=== PATIENT | male | born 1940 | race Caucasian/White ===

== ENCOUNTER 2019-11-14 19:14 | Inpatient (IN) | payer MEDICARE, OTHER ==
--- NOTE | 2019-11-14 19:31 | ER Document Report ---
ED Medical Screen (RME) - General Chief Complaint: Bloody Stools Stated Complaint: PASSING BLOOD IN STOOL Notes: Patient is an 79-year-old white male with a past medical history of colon cancer status post partial colonic resection, diverticulitis and diabetes who presents to the emergency department the chief complaint of bright red blood per rectum. Reports this is been occurring for the past 2 days. Associated with increased bowel movements over the past 2 days. Denies any pain or other physical symptoms. He was concerned given his history of cancer so he came for evaluation. I have treated and performed a rapid initial assessment of this patient. A co mprehensive ED assessment and evaluation of the patient, analysis of test results and completion of medical decision making process will be conducted by additional ED providers. PHYSICAL EXAMINATION: GENERAL: Well-appearing, well-nourished and in no acute distress. A&Ox4. Answers questions appropriately. Physical Exam - Vital signs Vitals: Temp Pulse Resp BP Pulse Ox 97.8 F 94 16 118/69 96 11/14/19 19:21 11/14/19 19:21 11/14/19 19:21 11/14/19 19:21 11/14/19 19:21 Course - Vital Signs Vital signs: Temp Pulse Resp BP Pulse Ox 97.8 F 94 16 118/69 96 11/14/19 19:21 11/14/19 19:21 11/14/19 19:21 11/14/19 19:21 11/14/19 19:21
[2019-11-14 19:48] LABS: ABSOLUTE EOSINOPHILS # (AUTO) 0.1 10^3/uL (0.0-0.6); ABSOLUTE LYMPHOCYTES (AUTO) 1.4 10^3/uL (0.5-4.7); ABSOLUTE MONOCYTES (AUTO) 0.5 10^3/uL (0.1-1.4); BASOPHILS % (AUTO) 0.7 % (0-2); EOSINOPHILS % (AUTO) 1.9 % (0-6); HEMOGLOBIN 12.5 g/dL (13.5-17.0); LYMPHOCYTES % (AUTO) 23.5 % (13-45); MEAN CORPUSCULAR HGB CONC 34.8 g/dL (32.0-36.0); MEAN CORPUSCULAR VOLUME 92 fl (80-97); MONOCYTES % (AUTO) 8.6 % (3-13); PLATELET COUNT 198 10^3/uL (150-450); RED BLOOD COUNT 3.92 10^6/uL (4.35-5.55); RED CELL DISTRIBUTION WIDTH 13.1 % (11.5-14.0); SEGMENTED NEUTROPHILS % (AUTO) 65.3 % (42-78); TOTAL CELLS COUNTED % (AUTO) 100 %; WHITE BLOOD COUNT 6.1 10^3/uL (4.0-10.5)
[2019-11-14 20:08] LABS: ALKALINE PHOSPHATASE 46 U/L (38-126); ANION GAP 7 (5-19); ASPARTATE AMINO TRANSFERASE 27 U/L (17-59); BILIRUBIN,TOTAL 0.3 mg/dL (0.2-1.3); BLOOD UREA NITROGEN 32 mg/dL (7-20); CALCIUM 8.9 mg/dL (8.4-10.2); CARBON DIOXIDE 25 mmol/L (22-30); CHLORIDE 107 mmol/L (98-107); GLUCOSE 109 mg/dL (75-110); POTASSIUM 4.6 mmol/L (3.6-5.0); TOTAL PROTEIN 6.5 g/dL (6.3-8.2)
[2019-11-14 20:12] LABS: INTERNATIONAL RATION (INR) 1.12; PROTHROMBIN TIME 14.4 SEC (11.4-15.4)
[2019-11-14 20:13] LABS: PARTIAL THROMBOPLASTIN TIME 31.9 SEC (23.5-35.8)
[2019-11-14] MEDS ORDERED: NORMAL SALINE 1000 ML 1,000 ML IV ONE ×2 (20:34→23:00)
--- NOTE | 2019-11-14 21:57 | RADIOLOGY REPORT (SQ) ---
CLINICAL INDICATION: lower gi bleed. . TECHNIQUE: Contrast enhanced spiral axial CT imaging was obtained of the abdomen and pelvis with multiplanar reconstructions. This exam was performed according to our departmental dose-optimization program, which includes automated exposure control, adjustment of the mA and/or kV according to patient size and/or use of iterative reconstruction techniques. Additional delayed phase imaging COMPARISON: None. CORRELATION: None. FINDINGS: Abdomen: The lung bases are grossly clear. The heart is of normal size. No evidence of pleural or pericardial fluid. The liver is homogeneous. The gallbladder is nondistended without inflammatory change. The pancreas is unremarkable. The spleen is unremarkable. The adrenals are unremarkable. The kidneys appear grossly normal without evidence of urolithiasis or hydronephrosis. Renal cyst bilaterally, the largest arising from the right kidney at 10 cm. These are simple appearing cyst. There is no evidence of free air. No free fluid. No bulky adenopathy. Abdominal aorta is nonaneurysmal. Pelvis: The bowel is nonobstructed. The bowel is unopacified with oral contrast. Pelvic contents demonstrate radioactive seeds within the prostate. The appendix is normal. Diverticulosis of the colon. Postsurgical changes seen to the sigmoid colon. Please correlate with history. Diverticula disease of unknown chronicity is identified of the sigmoid colon. The complications of acute diverticulitis are not seen. No intraluminal contrast is identified on delayed phase imaging to suggest active extravasation Visualized bones which is a tiny sclerotic lesion right femoral neck series 3 image 86. Osteoarthritis. IMPRESSION: Diverticulosis of the colon. Remote postsurgical change. Diverticular disease of unknown chronicity is seen of the sigmoid colon. Both mild acute uncomplicated diverticulitis and chronic diverticular changes can have a similar appearance. Importantly, there is no evidence of the complications of acute diverticulitis. No evidence of extravasation of contrast is identified to suggest significant active gastrointestinal hemorrhage at this time..
--- NOTE | 2019-11-14 22:01 | ER Document Report ---
Entered by JENNA VICKERS SCRIBE 11/14/192014 Acting as scribe for:ANTONIO TURNER IV, MD ED General - General Chief Complaint: Bloody Stools Stated Complaint: PASSING BLOOD IN STOOL Time Seen by Provider: 11/14/19 20:12 Mode of Arrival: Ambulatory Information source: Patient Notes: This 79 year old male patient presents to the ED today with complaints of bloody stools that started around 1800 yesterday evening. Patient states that he noticed bright red blood in his stools x8 times and diarrhea since onset, but denies any associated pain. Patient reports that he felt a "tinge" of a stomach cramp that has since resolved and has a tendency to become constipated. Patient reports a history of prostate cancer, colon cancer with a partial bowel resection, diverticulitis, and diabetes. Patient notes that he takes Simivastatin, Metformin, and baby ASA. Patient also reports feeling unsteady on his feet. - Related Data Allergies/Adverse Reactions: Penicillins Allergy (Verified 11/14/19 19:33) Home Medications: simivastatin,metformin, baby ASA Past Medical History - General Information source: Patient - Social History Smoking Status: Never Smoker Cigarette use (# per day): No Chew tobacco use (# tins/day): No Smoking Education Provided: No Frequency of alcohol use: None Drug Abuse: None Lives with: Spouse/Significant other Family History: Reviewed & Not Pertinent Patient has suicidal ideation: No Patient has homicidal ideation: No Malignancy Medical History: Reports Hx Prostate Cancer, Reports Other - Hx Colon Cancer GI Medical History: Reports: Hx Diverticulitis Past Surgical History: Reports: Other - Partial colon resection Review of Systems - Review of Systems Constitutional: No symptoms reported EENT: No symptoms reported Cardiovascular: No symptoms reported Respiratory: No symptoms reported Gastrointestinal: See HPI, Diarrhea, Blood streaked bowels. denies: Abdominal pain Genitourinary: See HPI. denies: Pain Musculoskeletal: No symptoms reported Skin: No symptoms reported Hematologic/Lymphatic: No symptoms reported Neurological/Psychological: See HPI, Gait changes -: Yes All other systems reviewed and negative Physical Exam - Vital signs Vitals: Temp Pulse Resp BP Pulse Ox 97.8 F 94 16 118/69 96 11/14/19 19:21 11/14/19 19:21 11/14/19 19:21 11/14/19 19:21 11/14/19 19:21 Interpretation: Normal - General General appearance: Appears well, Alert - HEENT Head: Normocephalic, Atraumatic Eyes: Normal Pupils: PERRL - Respiratory Respiratory status: No respiratory distress Chest status: Nontender Breath sounds: Normal Chest palpation: Normal - Cardiovascular Rhythm: Regular Heart sounds: Normal auscultation Murmur: No Friction rub: No Gallop: None auscultated - Abdominal Inspection: Normal Distension: No distension Bowel sounds: Normal Tenderness: Nontender - Abdomen soft Organomegaly: No organomegaly - Rectal Stool: Heme positive, Bloody - grossly - Back Back: Normal, Nontender - Extremities General upper extremity: Normal inspection General lower extremity: Normal inspection - Neurological Neuro grossly intact: Yes - Psychological Associated symptoms: Normal affect, Normal mood - Skin Skin Temperature: Warm Skin Moisture: Dry Skin Color: Normal Course - Re-evaluation Re-evalutation: 11/14/19 23:01 Results of ED MSE discussed with patient. All questions were answered. Patient agreed to admission. - Vital Signs Vital signs: Temp Pulse Resp BP Pulse Ox 97.5 F 81 20 140/77 H 96 11/14/19 22:49 11/14/19 22:49 11/14/19 22:49 11/14/19 22:49 11/14/19 22:49 - Laboratory Result Diagrams: 11/14/19 19:40 11/14/19 19:40 Laboratory results interpreted by me: 11/14/19 11/14/19 19:40 19:40 RBC 3.92 L Hgb 12.5 L Hct 36.0 L BUN 32 H - Diagnostic Test Radiology reviewed: Reports reviewed - Consults dr. marisabel velazquez Time consulted: 22:55 - dr. velazquez agreed to admit the patient Reason for consultation: 11/14/19 23:02 diverticulosis, lower GI bleed Discharge - Discharge Clinical Impression: Lower GI bleed, Diverticulosis Condition: Good Disposition: ADMITTED INPATIENT Admitting Provider: Ady (Hospitalist) Unit Admitted: Telemetry I personally performed the services described in the documentation, reviewed and edited the documentation which was dictated to the scribe in my presence, and it accurately records my words and actions.
[2019-11-14] MEDS ORDERED: IPRATROPIUM/ALBUTEROL 0.5-2.5 MG/3 ML AMPUL NEB PRN (22:57)
[2019-11-14] MEDS ORDERED: ACETAMINOPHEN 325 MG TABLET PO PRN (22:57)
[2019-11-14] MEDS ORDERED: MAG HYDROX/AL HYDROX/SIMETH SUSP 30 ML UDCUP PO PRN (22:57)
[2019-11-15 00:58] LABS: ABSOLUTE EOSINOPHILS # (AUTO) 0.1 10^3/uL (0.0-0.6); ABSOLUTE LYMPHOCYTES (AUTO) 1.5 10^3/uL (0.5-4.7); ABSOLUTE MONOCYTES (AUTO) 0.5 10^3/uL (0.1-1.4); ABSOLUTE NEUT (AUTO) 3.4 10^3/uL (1.7-8.2); BASOPHILS % (AUTO) 0.7 % (0-2); EOSINOPHILS % (AUTO) 2.4 % (0-6); HEMATOCRIT 33.2 % (37.9-51.0); HEMOGLOBIN 11.5 g/dL (13.5-17.0); LYMPHOCYTES % (AUTO) 26.7 % (13-45); MEAN CORPUSCULAR HGB CONC 34.6 g/dL (32.0-36.0); MEAN CORPUSCULAR VOLUME 93 fl (80-97); MONOCYTES % (AUTO) 8.8 % (3-13); PLATELET COUNT 194 10^3/uL (150-450); RED BLOOD COUNT 3.59 10^6/uL (4.35-5.55); RED CELL DISTRIBUTION WIDTH 13.1 % (11.5-14.0); SEGMENTED NEUTROPHILS % (AUTO) 61.4 % (42-78); TOTAL CELLS COUNTED % (AUTO) 100 %; WHITE BLOOD COUNT 5.6 10^3/uL (4.0-10.5)
--- NOTE | 2019-11-15 06:25 | PDOC H&P ---
History of Present Illness Admission Date/PCP: 11/14/19 23:37 Patient complains of: Bloody stools History of Present Illness: SUJIT LERNER is a 79 year old male with a past medical history of dyslipidemia, diabetes, diverticulitis, prostate and colon cancer status post partial bowel resection. He presents with 4 hours of bright red blood per rectum x8 with subsequent diarrhea without pain. He admits preceding constipation but denies history of bleeding. In the emergency department he is found to have an unremarkable work-up without coagulopathy or anemia. He is referred to the hospitalist for admission. He denies recent change in medications. Past Medical History Cardiac Medical History: Reports: Hypertension Malignancy Medical History: Reports: Colorectal Cancer, Other - Hx Colon Cancer GI Medical History: Reports: Diverticulitis Psychiatric Medical History: Denies: Depression Past Surgical History Past Surgical History: Reports: Other - Partial colon resection Social History Information Source: Patient, COUNTS INCLUDE 234 BEDS AT [facility] Records Lives with: Spouse/Significant other Smoking Status: Smoker,Current Status Unk Electronic Cigarette use?: No Frequency of Alcohol Use: None Drugs: None Hx Prescription Drug Abuse: No - Advance Directive Resuscitation Status: Full Code Family History Family History: Hypertension Parental Family History Reviewed: Yes Children Family History Reviewed: Yes Sibling(s) Family History Reviewed.: Yes Medication/Allergy Allergies/Adverse Reactions: Penicillins Allergy (Verified 11/14/19 19:33) Review of Systems Constitutional: ABSENT: chills, fever(s), headache(s), weight gain, weight loss Eyes: ABSENT: visual disturbances Ears: ABSENT: hearing changes Cardiovascular: ABSENT: chest pain, dyspnea on exertion, edema, orthropnea, palpitations Respiratory: ABSENT: cough, hemoptysis Gastrointestinal: PRESENT: constipation. ABSENT: abdominal pain, diarrhea, hematemesis, hematochezia, nausea, vomiting Genitourinary: ABSENT: dysuria, hematuria Musculoskeletal: ABSENT: joint swelling Integumentary: ABSENT: rash, wounds Neurological: ABSENT: abnormal gait, abnormal speech, confusion, dizziness, focal weakness, syncope Psychiatric: ABSENT: anxiety, depression, homidical ideation, suicidal ideation Endocrine: ABSENT: cold intolerance, heat intolerance, polydipsia, polyuria Hematologic/Lymphatic: ABSENT: easy bleeding, easy bruising Physical Exam Vital Signs: Temp Pulse Resp BP Pulse Ox 98.1 F 83 18 136/74 H 96 11/15/19 01:13 11/15/19 02:00 11/15/19 01:13 11/15/19 01:13 11/15/19 01:13 Intake & Output 11/13/19 11/14/19 11/15/19 11:59 11:59 11:59 Intake Total 1000 Balance 1000 Weight 98 kg General appearance: PRESENT: no acute distress, well-developed, well-nourished Head exam: PRESENT: atraumatic, normocephalic Eye exam: PRESENT: conjunctiva pink, EOMI, PERRLA. ABSENT: scleral icterus Ear exam: PRESENT: normal external ear exam Mouth exam: PRESENT: moist, tongue midline Neck exam: ABSENT: carotid bruit, JVD, lymphadenopathy, thyromegaly Respiratory exam: PRESENT: clear to auscultation eulogio. ABSENT: rales, rhonchi, wheezes Cardiovascular exam: PRESENT: RRR. ABSENT: diastolic murmur, rubs, systolic murmur Pulses: PRESENT: normal dorsalis pedis pul Vascular exam: PRESENT: normal capillary refill GI/Abdominal exam: PRESENT: normal bowel sounds, soft. ABSENT: distended, guarding, mass, organolmegaly, rebound, tenderness Rectal exam: PRESENT: deferred Extremities exam: PRESENT: full ROM. ABSENT: calf tenderness, clubbing, pedal edema Neurological exam: PRESENT: alert, awake, oriented to person, oriented to place, oriented to time, oriented to situation, CN II-XII grossly intact. ABSENT: motor sensory deficit Psychiatric exam: PRESENT: appropriate affect, normal mood. ABSENT: homicidal ideation, suicidal ideation Skin exam: PRESENT: dry, intact, warm. ABSENT: cyanosis, rash Results Laboratory Results: 11/15/19 00:51 11/14/19 19:40 11/14/19 11/14/19 11/14/19 19:40 19:40 20:20 WBC 6.1 RBC 3.92 L Hgb 12.5 L Hct 36.0 L MCV 92 MCH 32.0 MCHC 34.8 RDW 13.1 Plt Count 198 Seg Neutrophils % 65.3 Sodium 138.7 Potassium 4.6 Chloride 107 Carbon Dioxide 25 Anion Gap 7 BUN 32 H Creatinine 1.05 Est GFR ( Amer) > 60 Glucose 109 Calcium 8.9 Total Bilirubin 0.3 AST 27 Alkaline Phosphatase 46 Total Protein 6.5 Albumin 4.0 Lipase 148.7 Blood Type A NEGATIVE Antibody Screen NEGATIVE 11/15/19 00:51 WBC 5.6 RBC 3.59 L Hgb 11.5 L Hct 33.2 L MCV 93 MCH 32.0 MCHC 34.6 RDW 13.1 Plt Count 194 Seg Neutrophils % 61.4 Sodium Potassium Chloride Carbon Dioxide Anion Gap BUN Creatinine Est GFR ( Amer) Glucose Calcium Total Bilirubin AST Alkaline Phosphatase Total Protein Albumin Lipase Blood Type Antibody Screen Impressions: Abdomen/Pelvis CT 11/14/19 20:36 IMPRESSION: Diverticulosis of the colon. Remote postsurgical change. Diverticular disease of unknown chronicity is seen of the sigmoid colon. Both mild acute uncomplicated diverticulitis and chronic diverticular changes can have a similar appearance. Importantly, there is no evidence of the complications of acute diverticulitis. No evidence of extravasation of contrast is identified to suggest significant active gastrointestinal hemorrhage at this time.. Assessment and Plan - Diagnosis (1) Lower GI bleed Is this a current diagnosis for this admission?: Yes Plan: Likely painless diverticular bleed, telemetry monitoring follow-up serial CBC and surgical consult (2) Diverticulosis Is this a current diagnosis for this admission?: Yes Plan: Please see #1 - Time Time Spent with patient: 25-34 minutes
[2019-11-15 06:39] LABS: ABSOLUTE EOSINOPHILS # (AUTO) 0.1 10^3/uL (0.0-0.6); ABSOLUTE LYMPHOCYTES (AUTO) 1.1 10^3/uL (0.5-4.7); ABSOLUTE MONOCYTES (AUTO) 0.5 10^3/uL (0.1-1.4); ABSOLUTE NEUT (AUTO) 3.1 10^3/uL (1.7-8.2); BASOPHILS % (AUTO) 0.6 % (0-2); EOSINOPHILS % (AUTO) 1.9 % (0-6); HEMATOCRIT 26.9 % (37.9-51.0); HEMOGLOBIN 9.5 g/dL (13.5-17.0); MEAN CORPUSCULAR HEMOGLOBIN 32.3 pg (27.0-33.4); MEAN CORPUSCULAR HGB CONC 35.2 g/dL (32.0-36.0); MEAN CORPUSCULAR VOLUME 92 fl (80-97); MONOCYTES % (AUTO) 10.5 % (3-13); PLATELET COUNT 152 10^3/uL (150-450); RED BLOOD COUNT 2.93 10^6/uL (4.35-5.55); RED CELL DISTRIBUTION WIDTH 13.3 % (11.5-14.0); TOTAL CELLS COUNTED % (AUTO) 100 %; WHITE BLOOD COUNT 4.9 10^3/uL (4.0-10.5)
[2019-11-15] MEDS ORDERED: FLUOCINOLONE ACETONIDE OIL AU PRN (12:39)
--- NOTE | 2019-11-15 12:44 | PDOC PROGRESS REPORT ---
Subjective Progress Note for:: 11/15/19 Subjective:: Patient complains of: Bloody stools History of Present Illness: SUJIT LERNER is a 79 year old male with a past medical history of dyslipidemia, diabetes, diverticulitis, prostate and colon cancer status post partial bowel resection. He presents with 4 hours of bright red blood per rectum x8 with subsequent diarrhea without pain. He admits preceding constipation but denies history of bleeding. In the emergency department he is found to have an unremarkable work-up without coagulopathy or anemia. He is ref erred to the hospitalist for admission. He denies recent change in medications. Interval history: 11/07/2019: Patient seen and examined. Patient tells me he is feeling better. Had a small bowel movement last night and there was no blood in it. He is currently n.p.o. and waiting to see his surgeon. P Reason For Visit: LOWER GI BLEED,DIVERTICULOSIS Physical Exam Vital Signs: Temp Pulse Resp BP Pulse Ox 98.5 F 81 18 105/62 95 11/15/19 10:51 11/15/19 10:51 11/15/19 10:51 11/15/19 10:51 11/15/19 10:51 Intake & Output 11/14/19 11/15/19 11/16/19 06:59 06:59 06:59 Intake Total 1000 Balance 1000 Weight 216 lb 0.848 oz Exam: hysical Exam General appearance: no acute distress, well-developed, well-nourished Head exam: atraumatic, normocephalic Eye exam: conjunctiva pink, EOMI, PERRLA. No scleral icterus Ear exam: normal external ear exam Mouth exam: moist, tongue midline Neck exam: No carotid bruit, JVD, lymphadenopathy, thyromegaly Respiratory exam: clear to auscultation eulogio. No rales, rhonchi, wheezes Cardiovascular exam: RRR. No diastolic murmur, rubs, systolic murmur Pulses: normal dorsalis pedis pul Vascular exam: normal capillary refill GI/Abdominal exam: normal bowel sounds, soft. No distended, guarding, mass, organolmegaly, rebound, tenderness Rectal exam: deferred Extremities exam: full ROM. No calf tenderness, clubbing, pedal edema Neurological exam: alert, awake, oriented to person, oriented to place, orient ed to time, oriented to situation, CN II-XII grossly intact. No motor sensory deficit Psychiatric exam: appropriate affect, normal mood. No homicidal ideation, suicidal ideation Skin exam: dry, intact, warm. No cyanosis, rash Results Laboratory Results: 11/15/19 06:35 11/14/19 19:40 11/14/19 11/14/19 11/14/19 19:40 19:40 20:20 WBC 6.1 RBC 3.92 L Hgb 12.5 L Hct 36.0 L MCV 92 MCH 32.0 MCHC 34.8 RDW 13.1 Plt Count 198 Seg Neutrophils % 65.3 Sodium 138.7 Potassium 4.6 Chloride 107 Carbon Dioxide 25 Anion Gap 7 BUN 32 H Creatinine 1.05 Est GFR ( Amer) > 60 Glucose 109 Calcium 8.9 Total Bilirubin 0.3 AST 27 Alkaline Phosphatase 46 Total Protein 6.5 Albumin 4.0 Lipase 148.7 Blood Type A NEGATIVE Antibody Screen NEGATIVE 11/15/19 11/15/19 00:51 06:35 WBC 5.6 4.9 RBC 3.59 L 2.93 L Hgb 11.5 L 9.5 L Hct 33.2 L 26.9 L MCV 93 92 MCH 32.0 32.3 MCHC 34.6 35.2 RDW 13.1 13.3 Plt Count 194 152 Seg Neutrophils % 61.4 64.0 Sodium Potassium Chloride Carbon Dioxide Anion Gap BUN Creatinine Est GFR ( Amer) Glucose Calcium Total Bilirubin AST Alkaline Phosphatase Total Protein Albumin Lipase Blood Type Antibody Screen Impressions: Abdomen/Pelvis CT 11/14/19 20:36 IMPRESSION: Diverticulosis of the colon. Remote postsurgical change. Diverticular disease of unknown chronicity is seen of the sigmoid colon. Both mild acute uncomplicated diverticulitis and chronic diverticular changes can have a similar appearance. Importantly, there is no evidence of the complications of acute diverticulitis. No evidence of extravasation of contrast is identified to suggest significant active gastrointestinal hemorrhage at this time.. Assessment and Plan - Plan Summary Summary: Assessment and Plan (1) Lower GI bleed Is this a current diagnosis for this admission?: Yes Plan: Likely painless diverticular bleed, telemetry monitoring follow-up serial CBC and surgical consult (2) Diverticulosis Is this a current diagnosis for this admission?: Yes Plan: Please see #1
[2019-11-15 14:10] LABS: ABSOLUTE EOSINOPHILS # (AUTO) 0.1 10^3/uL (0.0-0.6); ABSOLUTE MONOCYTES (AUTO) 0.4 10^3/uL (0.1-1.4); ABSOLUTE NEUT (AUTO) 2.7 10^3/uL (1.7-8.2); BASOPHILS % (AUTO) 0.6 % (0-2); EOSINOPHILS % (AUTO) 2.9 % (0-6); HEMATOCRIT 27.6 % (37.9-51.0); HEMOGLOBIN 9.6 g/dL (13.5-17.0); LYMPHOCYTES % (AUTO) 24.3 % (13-45); MEAN CORPUSCULAR HEMOGLOBIN 31.6 pg (27.0-33.4); MEAN CORPUSCULAR HGB CONC 34.9 g/dL (32.0-36.0); MEAN CORPUSCULAR VOLUME 91 fl (80-97); MONOCYTES % (AUTO) 9.3 % (3-13); PLATELET COUNT 160 10^3/uL (150-450); RED BLOOD COUNT 3.04 10^6/uL (4.35-5.55); RED CELL DISTRIBUTION WIDTH 13.3 % (11.5-14.0); SEGMENTED NEUTROPHILS % (AUTO) 62.9 % (42-78); TOTAL CELLS COUNTED % (AUTO) 100 %; WHITE BLOOD COUNT 4.2 10^3/uL (4.0-10.5)
[2019-11-15 14:31] LABS: ANION GAP 5 (5-19); BLOOD UREA NITROGEN 23 mg/dL (7-20); CALCIUM 8.2 mg/dL (8.4-10.2); CARBON DIOXIDE 25 mmol/L (22-30); CHLORIDE 109 mmol/L (98-107); GLUCOSE 107 mg/dL (75-110); POTASSIUM 4.4 mmol/L (3.6-5.0)
[2019-11-15] MEDS ORDERED: PEG 3350/NA SULF,BICARB,CL/KCL 4000 ML PO ONE (16:45)
[2019-11-15] MEDS ORDERED: (PENDING PHARMACY ID) (Vit C/E/Zn/Coppr/Lutein/Zeaxan [Preservision Areds 2 Softgel] 1 EAC PO SCH (18:00)
[2019-11-15] MEDS ORDERED: PEG 3350/NA SULF,BICARB,CL/KCL 4000 ML ONE (18:11)
[2019-11-15] MEDS: VITAMIN B COMPLEX TABLET PO SCH (18:23)
[2019-11-15] MEDS: ASCORBIC ACID 500 MG TABLET PO SCH (18:23)
[2019-11-15] MEDS: VITAMIN A 10,000 UNIT CAPSULE PO SCH (18:28)
--- NOTE | 2019-11-15 18:40 | PDOC CONSULTATION ---
Consultation Consult Date: 11/15/19 Provider Consulted: ADRIANA SUAREZ Consult reason:: GI bleed History of Present Illness Admission Date/PCP: 11/14/19 23:37 Patient complains of: GI bleeding History of Present Illness: SUJIT LERNER is a 79 year old male Presents emergency department via ground rescue after having 8 episodes of blood in his bowel movements yesterday. Patient remained hemodynamically stable, was seen emergency department where he is found to have a hemoglobin of 12.5. Patient was admitted to the internal medicine service, with plans for surgical consultation, however no phone call was received by the surgeon on-call. This afternoon nursing services called Dr. Suarez for the consult. Patient reports he had one episode of GI bleeding remotely, but no hospitalizations for such symptoms, or blood transfusion requirement. Patient is 10 years status post limited colectomy for follow-up with base of features. Patient received no adjuvant therapy for this. He has no complaints at this time, no further bleeding. Patient has had multiple colonoscopies since his colectomy with benign results. He is prepared for repeat colonoscopy. Past Medical History Cardiac Medical History: Reports: Hypertension Malignancy Medical History: Reports: Colorectal Cancer, Other - Hx Colon Cancer GI Medical History: Reports: Diverticulitis Psychiatric Medical History: Denies: Depression Past Surgical History Past Surgical History: Partial colectomy, 14 years ago [facility]; surveillance colonoscopies with unremarkable findings since; history of radium implants for prostate cancer 25 years ago Past Surgical History: Reports: Other - Partial colon resection Social History Lives with: Spouse/Significant other Smoking Status: Smoker,Current Status Unk Electronic Cigarette use?: No Frequency of Alcohol Use: None Drugs: None Hx Prescription Drug Abuse: No - Advance Directive Resuscitation Status: Full Code Family History Family History: None, Hypertension Parental Family History Reviewed: No Children Family History Reviewed: No Sibling(s) Family History Reviewed.: No Medication/Allergy Home Medications: Ascorbic Acid [Vitamin C 500 mg Tablet] 500 mg PO QPM 11/15/19 Aspirin [Ecotrin 81 mg EC Tablet] 81 mg PO DAILY 11/15/19 Fluocinolone Acetonide Oil [Dermotic] 1 drop AU BIDP PRN 11/15/19 Levothyroxine Sodium 50 mcg PO Q6AM 11/15/19 Meloxicam [Mobic 15 mg Tablet] 15 mg PO DAILYP PRN 11/15/19 Metformin HCl [Glucophage 500 mg Tablet] 500 mg PO BIDACBS 11/15/19 Simvastatin 40 mg PO QHS 11/15/19 Vit C/E/Zn/Coppr/Lutein/Zeaxan [Preservision Areds 2 Softgel] 1 each PO BID 0 11/15/19 Vitamin A [Vitamin A 10,000 Unit Capsule] 10,000 unit PO QPM 11/15/19 Vitamin B Complex [Vitamin B Complex Tablet] 1 tab PO QPM 11/15/19 Allergies/Adverse Reactions: Penicillins Allergy (Verified 11/14/19 19:33) Review of Systems Constitutional: PRESENT: as per HPI Eyes: ABSENT: visual disturbances Ears: ABSENT: hearing changes Cardiovascular: ABSENT: chest pain, dyspnea on exertion, edema, orthropnea, palpitations Respiratory: ABSENT: cough, hemoptysis Gastrointestinal: PRESENT: as per HPI Genitourinary: PRESENT: as per HPI, other - Occasional frequency. ABSENT: dysuria, hematuria Integumentary: ABSENT: rash, wounds Psychiatric: ABSENT: anxiety, depression, homidical ideation, suicidal ideation Endocrine: ABSENT: cold intolerance, heat intolerance, polydipsia, polyuria Hematologic/Lymphatic: ABSENT: easy bleeding, easy bruising Physical Exam Vital Signs: Temp Pulse Resp BP Pulse Ox 97.9 F 71 16 108/67 95 11/15/19 15:01 11/15/19 15:01 11/15/19 15:01 11/15/19 15:01 11/15/19 15:01 Intake & Output 11/14/19 11/15/19 11/16/19 06:59 06:59 06:59 Intake Total 1000 Balance 1000 Weight 98 kg General appearance: PRESENT: no acute distress Head exam: PRESENT: normocephalic Eye exam: PRESENT: EOMI Mouth exam: PRESENT: dry mucosa Neck exam: PRESENT: full ROM Respiratory exam: PRESENT: clear to auscultation eulogio Cardiovascular exam: PRESENT: RRR Pulses: PRESENT: normal carotid pulses, normal radial pulses, normal femoral pulses GI/Abdominal exam: PRESENT: other - Soft, nontender no peritoneal signs or rigidity; well-healed midline scar; no obvious hernia. Diastases rectus. Rectal exam: PRESENT: deferred Extremities exam: PRESENT: full ROM Musculoskeletal exam: PRESENT: full ROM Neurological exam: PRESENT: oriented to person, oriented to place, oriented to time, oriented to situation Psychiatric exam: PRESENT: appropriate affect Results Laboratory Results: 11/15/19 13:34 11/15/19 13:34 11/14/19 11/14/19 11/14/19 19:40 19:40 20:20 WBC 6.1 RBC 3.92 L Hgb 12.5 L Hct 36.0 L MCV 92 MCH 32.0 MCHC 34.8 RDW 13.1 Plt Count 198 Seg Neutrophils % 65.3 Sodium 138.7 Potassium 4.6 Chloride 107 Carbon Dioxide 25 Anion Gap 7 BUN 32 H Creatinine 1.05 Est GFR ( Amer) > 60 Glucose 109 Calcium 8.9 Total Bilirubin 0.3 AST 27 Alkaline Phosphatase 46 Total Protein 6.5 Albumin 4.0 Lipase 148.7 Blood Type A NEGATIVE Antibody Screen NEGATIVE 11/15/19 11/15/19 11/15/19 00:51 06:35 13:34 WBC 5.6 4.9 4.2 RBC 3.59 L 2.93 L 3.04 L Hgb 11.5 L 9.5 L 9.6 L Hct 33.2 L 26.9 L 27.6 L MCV 93 92 91 MCH 32.0 32.3 31.6 MCHC 34.6 35.2 34.9 RDW 13.1 13.3 13.3 Plt Count 194 152 160 Seg Neutrophils % 61.4 64.0 62.9 Sodium Potassium Chloride Carbon Dioxide Anion Gap BUN Creatinine Est GFR ( Amer) Glucose Calcium Total Bilirubin AST Alkaline Phosphatase Total Protein Albumin Lipase Blood Type Antibody Screen 11/15/19 13:34 WBC RBC Hgb Hct MCV MCH MCHC RDW Plt Count Seg Neutrophils % Sodium 139.4 Potassium 4.4 Chloride 109 H Carbon Dioxide 25 Anion Gap 5 BUN 23 H Creatinine 0.88 Est GFR ( Amer) > 60 Glucose 107 Calcium 8.2 L Total Bilirubin AST Alkaline Phosphatase Total Protein Albumin Lipase Blood Type Antibody Screen Impressions: Abdomen/Pelvis CT 11/14/19 20:36 IMPRESSION: Diverticulosis of the colon. Remote postsurgical change. Diverticular disease of unknown chronicity is seen of the sigmoid colon. Both mild acute uncomplicated diverticulitis and chronic diverticular changes can have a similar appearance. Importantly, there is no evidence of the complications of acute diverticulitis. No evidence of extravasation of contrast is identified to suggest significant active gastrointestinal hemorrhage at this time.. Assessment & Plan - Diagnosis (1) Lower GI bleed Is this a current diagnosis for this admission?: Yes Plan: Impression: Lower GI bleed, for significant episode, several gram drop in hemoglobin from 12.5-9.6. Hemodynamically stable. CT scan of the abdomen and pelvis shows scattered descending colon and sigmoid diverticular disease; history of partial colectomy for noninvasive tumor, evidence of stapled anastomosis in the sigmoid colon Recommendations: 1. Reviewed patient's clinical condition at bedside. He is not actively bleeding; he may be bleeding from his descending colon diverticulosis. I suggested we perform upper and lower endoscopy tomorrow under LMAC anesthesia. We can begin bowel prep this evening. He is in agreement to proceed. (4) Diverticulosis Is this a current diagnosis for this admission?: Yes
[2019-11-15] MEDS ORDERED: SIMVASTATIN 40 MG TABLET PO SCH (22:00)
[2019-11-16 02:45] LABS: ABSOLUTE EOSINOPHILS # (AUTO) 0.2 10^3/uL (0.0-0.6); ABSOLUTE LYMPHOCYTES (AUTO) 1.2 10^3/uL (0.5-4.7); ABSOLUTE MONOCYTES (AUTO) 0.4 10^3/uL (0.1-1.4); ABSOLUTE NEUT (AUTO) 2.3 10^3/uL (1.7-8.2); BASOPHILS % (AUTO) 0.7 % (0-2); EOSINOPHILS % (AUTO) 4.1 % (0-6); HEMATOCRIT 25.9 % (37.9-51.0); LYMPHOCYTES % (AUTO) 28.6 % (13-45); MEAN CORPUSCULAR HEMOGLOBIN 31.9 pg (27.0-33.4); MEAN CORPUSCULAR HGB CONC 34.9 g/dL (32.0-36.0); MEAN CORPUSCULAR VOLUME 92 fl (80-97); RED BLOOD COUNT 2.84 10^6/uL (4.35-5.55); RED CELL DISTRIBUTION WIDTH 12.9 % (11.5-14.0); SEGMENTED NEUTROPHILS % (AUTO) 56.6 % (42-78); TOTAL CELLS COUNTED % (AUTO) 100 %; WHITE BLOOD COUNT 4.1 10^3/uL (4.0-10.5)
[2019-11-16 02:46] LABS: PLATELET COUNT 157 10^3/uL (150-450)
[2019-11-16] MEDS ORDERED: LEVOTHYROXINE SODIUM 0.05 MG TABLET PO SCH (06:00)
--- NOTE | 2019-11-16 09:27 | PDOC PROGRESS REPORT ---
Subjective Progress Note for:: 11/16/19 Reason For Visit: LOWER GI BLEED,DIVERTICULOSIS Patient has no complaints, completed his bowel prep with watery yellow stool only Physical Exam Vital Signs: Temp Pulse Resp BP Pulse Ox 97.6 F 78 18 107/57 L 95 11/16/19 04:26 11/16/19 07:00 11/16/19 04:26 11/16/19 04:26 11/16/19 04:26 Intake & Output 11/15/19 11/16/19 11/17/19 06:59 06:59 06:59 Intake Total 1000 Balance 1000 Weight 98 kg 100.6 kg General appearance: PRESENT: no acute distress GI/Abdominal exam: PRESENT: other - Benign, nontender no peritoneal signs. Results Laboratory Results: 11/16/19 02:28 11/15/19 13:34 11/15/19 11/15/19 11/16/19 13:34 13:34 02:28 WBC 4.2 4.1 RBC 3.04 L 2.84 L Hgb 9.6 L 9.0 L Hct 27.6 L 25.9 L MCV 91 92 MCH 31.6 31.9 MCHC 34.9 34.9 RDW 13.3 12.9 Plt Count 160 157 Seg Neutrophils % 62.9 56.6 Sodium 139.4 Potassium 4.4 Chloride 109 H Carbon Dioxide 25 Anion Gap 5 BUN 23 H Creatinine 0.88 Est GFR ( Amer) > 60 Glucose 107 Calcium 8.2 L Impressions: Abdomen/Pelvis CT 11/14/19 20:36 IMPRESSION: Diverticulosis of the colon. Remote postsurgical change. Diverticular disease of unknown chronicity is seen of the sigmoid colon. Both mild acute uncomplicated diverticulitis and chronic diverticular changes can have a similar appearance. Importantly, there is no evidence of the complications of acute diverticulitis. No evidence of extravasation of contrast is identified to suggest significant active gastrointestinal hemorrhage at this time.. Assessment & Plan - Diagnosis (1) Lower GI bleed Is this a current diagnosis for this admission?: Yes Plan: Impression: Patient bleeding has nearly abated. He has completed his bowel prep with very good results. Plan: 1. Upper and lower endoscopy today under LMAC the main operating room. 2. Risk benefits and alternatives of the planned procedure explained to the patient. Expresses understanding agrees to proceed. (4) Diverticulosis Is this a current diagnosis for this admission?: Yes
[2019-11-16] MEDS ORDERED: FLUOCINOLONE ACETONIDE OIL AU PRN (09:52)
[2019-11-16] MEDS ORDERED: (PENDING PHARMACY ID) (Vit C/E/Zn/Coppr/Lutein/Zeaxan [Preservision Areds 2 Softgel] 1 EAC PO SCH (10:00)
--- NOTE | 2019-11-16 10:27 | PDOC PROGRESS REPORT ---
Subjective Progress Note for:: 11/16/19 Subjective:: Patient complains of: Bloody stools History of Present Illness: SUJIT LERNER is a 79 year old male with a past medical history of dyslipidemia, diabetes, diverticulitis, prostate and colon cancer status post partial bowel resection. He presents with 4 hours of bright red blood per rectum x8 with subsequent diarrhea without pain. He admits preceding constipati on but denies history of bleeding. In the emergency department he is found to have an unremarkable work-up without coagulopathy or anemia. He is referred to the hospitalist for admission. He denies recent change in medications. Interval history: 11/15/2019: Patient seen and examined. Patient tells me he is feeling better. Had a small bowel movement last night and there was no blood in it. He is currently n.p.o. and waiting to see his surgeon. 11/16/2019: Patient seen and examined. He had his bowel prep last night and scheduled for EGD and colonoscopy later today. No bleeding whatsoever so far. Physical Exam General appearance: no acute distress, well-developed, well-nourished Head exam: atraumatic, normocephalic Eye exam: conjunctiva pink, EOMI, PERRLA. No scleral icterus Ear exam: normal external ear exam Mouth exam: moist, tongue midline Neck exam: No carotid bruit, JVD, lymphadenopathy, thyromegaly Respiratory exam: clear to auscultation eulogio. No rales, rhonchi, wheezes Cardiovascular exam: RRR. No diastolic murmur, rubs, systolic murmur Pulses: normal dorsalis pedis pul Vascular exam: normal capillary refill GI/Abdominal exam: normal bowel sounds, soft. No distended, guarding, mass, organolmegaly, rebound, tenderness Rectal exam: deferred Extremities exam: full ROM. No calf tenderness, clubbing, pedal edema Neurological exam: alert, awake, oriented to person, oriented to place, oriented to time, oriented to situation, CN II-XII grossly intact. No motor sensory deficit Psychiatric exam: appropriate affect, normal mood. No homicidal ideation, suicidal ideation Skin exam: dry, intact, warm. No cyanosis, rash Reason For Visit: LOWER GI BLEED,DIVERTICULOSIS Physical Exam Vital Signs: Temp Pulse Resp BP Pulse Ox 98.1 F 79 18 122/52 L 94 11/16/19 07:38 11/16/19 07:38 11/16/19 07:38 11/16/19 07:38 11/16/19 07:38 Intake & Output 11/15/19 11/16/19 11/17/19 06:59 06:59 06:59 Intake Total 1000 Balance 1000 Weight 216 lb 0.848 oz 221 lb 12.56 oz Results Laboratory Results: 11/16/19 02:28 11/15/19 13:34 11/15/19 11/15/19 11/16/19 13:34 13:34 02:28 WBC 4.2 4.1 RBC 3.04 L 2.84 L Hgb 9.6 L 9.0 L Hct 27.6 L 25.9 L MCV 91 92 MCH 31.6 31.9 MCHC 34.9 34.9 RDW 13.3 12.9 Plt Count 160 157 Seg Neutrophils % 62.9 56.6 Sodium 139.4 Potassium 4.4 Chloride 109 H Carbon Dioxide 25 Anion Gap 5 BUN 23 H Creatinine 0.88 Est GFR ( Amer) > 60 Glucose 107 Calcium 8.2 L Impressions: Abdomen/Pelvis CT 11/14/19 20:36 IMPRESSION: Diverticulosis of the colon. Remote postsurgical change. Diverticular disease of unknown chronicity is seen of the sigmoid colon. Both mild acute uncomplicated diverticulitis and chronic diverticular changes can have a similar appearance. Importantly, there is no evidence of the complications of acute diverticulitis. No evidence of extravasation of contrast is identified to suggest significant active gastrointestinal hemorrhage at this time.. Assessment and Plan - Plan Summary Summary: Assessment and Plan (1) Lower GI bleed Is this a current diagnosis for this admission?: Yes Plan: Likely painless diverticular bleed, telemetry monitoring follow-up serial CBC. Scheduled for colonoscopy and EGD later today. (2) Diverticulosis Is this a current diagnosis for this admission?: Yes Plan: Please see #1
[2019-11-16 10:35] LABS: ABSOLUTE EOSINOPHILS # (AUTO) 0.2 10^3/uL (0.0-0.6); ABSOLUTE LYMPHOCYTES (AUTO) 0.9 10^3/uL (0.5-4.7); ABSOLUTE MONOCYTES (AUTO) 0.4 10^3/uL (0.1-1.4); ABSOLUTE NEUT (AUTO) 2.3 10^3/uL (1.7-8.2); BASOPHILS % (AUTO) 0.6 % (0-2); EOSINOPHILS % (AUTO) 4.6 % (0-6); HEMATOCRIT 27.2 % (37.9-51.0); HEMOGLOBIN 9.6 g/dL (13.5-17.0); LYMPHOCYTES % (AUTO) 24.1 % (13-45); MEAN CORPUSCULAR HEMOGLOBIN 32.2 pg (27.0-33.4); MEAN CORPUSCULAR HGB CONC 35.3 g/dL (32.0-36.0); MEAN CORPUSCULAR VOLUME 91 fl (80-97); MONOCYTES % (AUTO) 10.3 % (3-13); PLATELET COUNT 165 10^3/uL (150-450); RED BLOOD COUNT 2.99 10^6/uL (4.35-5.55); RED CELL DISTRIBUTION WIDTH 13.2 % (11.5-14.0); SEGMENTED NEUTROPHILS % (AUTO) 60.4 % (42-78); TOTAL CELLS COUNTED % (AUTO) 100 %; WHITE BLOOD COUNT 3.8 10^3/uL (4.0-10.5)
[2019-11-16 12:07] LABS: ANION GAP 6 (5-19); BLOOD UREA NITROGEN 15 mg/dL (7-20); CALCIUM 8.5 mg/dL (8.4-10.2); CARBON DIOXIDE 29 mmol/L (22-30); CHLORIDE 106 mmol/L (98-107); GLUCOSE 111 mg/dL (75-110); POTASSIUM 4.4 mmol/L (3.6-5.0)
[2019-11-16] MEDS ORDERED: KETAMINE HCL INJ 500 MG/10 ML VIAL ONE (12:19)
[2019-11-16] MEDS ORDERED: PROPOFOL 1,000 MG/100 ML INFUS..BTL IV ONE (12:19)
[2019-11-16] MEDS ORDERED: MIDAZOLAM 2 MG/2 ML INJ ONE (12:19)
[2019-11-16] MEDS ORDERED: LIDOCAINE 2% INJ-PF (20 MG/ML) 10 ML AMPUL ONE (12:21)
--- NOTE | 2019-11-16 13:51 | Operative Report ---
Operative Report DATE OF SURGERY: 11/16/19 PREOPERATIVE DIAGNOSIS: 1. Acute lower GI bleed. 2. History of colon resecti on for precancerous lesion POSTOPERATIVE DIAGNOSIS: Same with. 1. Esophageal varices, grade 2. 2. Internal/external hemorrhoids. 3. Extensive sigmoid diverticulosis likely source of recent GI bleed. 4. Descending colon polyp OPERATION: 1. Esophagogastroduodenoscopy. 2. Colonoscopy to cecum with photodocumentation. 3. Colonic polypectomy of descending colon with cold forceps device SURGEON: ADRIANA TORRES ANESTHESIA: LMAC TISSUE REMOVED OR ALTERED: Polyp COMPLICATIONS: None ESTIMATED BLOOD LOSS: None INTRAOPERATIVE FINDINGS: See below PROCEDURE: The patient was taken to the preop holding area to the main operating where LMAC anesthesia was induced. The patient was placed in semirecumbent position, tilted to the left side oral mouthpiece inserted and appropriate level of LMAC anesthesia was induced. The flexible adult upper endoscope was advanced to the oropharynx, down the esophagus through the stomach and into the first and second portions of the duodenum. This was well-tolerated by the patient. There was no evidence of acute bleeding or clot. The duodenum was unremarkable. The stomach was grossly unremarkable with no evidence of polyp tumor stricture or tumor. The GE junction was visualized prograde in antegrade fashion with no evidence of pathology. The esophagus was significant for grade 1 and grade 2 esophageal varices not bleeding. Photo taken. The scope was withdrawn to the patient's oropharynx. He tolerated this portion of the procedure well The patient was then placed in the left lateral decubitus position head down. A rectal exam was performed. There was no palpable pathology appreciated The flexible adult colonoscope was advanced to the anorectal canal all the way to the cecum. This was an excellent study in a well-prepped bowel with only 1 or 2 small residual stool balls. The findings were significant for a small 2 to 3 mm polyp in the descending colon photographed and removed with a cold forceps device, polypectomy site inspected for bleeding and there was none. Specimen was sent to pathology as descending colon polyp. In the sigmoid colon there were scattered diverticulosis, with very small specks of recent clot. There was some larger clots floating in the bowel prep. Photos were taken. Source of bleeding was felt to be the sigmoid colon. There was no active bleeding. There is no evidence of tumor. Scope was withdrawn from the patient's anus after inspecting the anorectal canal in a retrograde fashion. There were internal hemorrhoids. Again no evidence of acute bleeding. Scope was withdrawn with the patient's anus. He tolerated procedure well ImPression: Lower GI bleed likely from no active bleeding currently Recommendations: 1. Advance diet as tolerated 2. We will sign off for now; Today's polyp removed most consistent with hyperplastic polyp. Patient has a history of polyps and limited colon resection for abnormal polyp in the past. He will require surveillance colonoscopy in 3 years if he chooses. 3. Please reconsult surgery if clinically indicated.
--- NOTE | 2019-11-16 13:57 | EKG REPORT ---
SEVERITY:- ABNORMAL ECG - SINUS RHYTHM NONSPECIFIC T ABNORMALITIES, DIFFUSE LEADS : Confirmed by: Jordan Ogden MD 16-Nov-2019 13:56:39
[2019-11-16] MEDS: VITAMIN B COMPLEX TABLET PO SCH (17:27)
[2019-11-16] MEDS: VITAMIN A 10,000 UNIT CAPSULE PO SCH (17:27)
[2019-11-16] MEDS: ASCORBIC ACID 500 MG TABLET PO SCH (17:27)
[2019-11-16 18:09] VITALS: BP 136/74
--- NOTE | 2019-11-16 18:09 | PDOC DISCHARGE SUMMARY ---
Impression - Admit/DC Date/PCP Admission Date/Primary Care Provider: 11/14/19 23:37 Discharge Date: 11/16/19 - Discharge Diagnosis (1) Diverticulosis Is this a current diagnosis for this admission?: Yes (2) Lower GI bleed Is this a current diagnosis for this admission?: Yes - Assessment Summary: Assessment and Plan (1) Lower GI bleed Is this a current diagnosis for this admission?: Yes Plan: Likely painless diverticular bleed, telemetry monitoring follow-up serial CBC. Scheduled for colonoscopy and EGD later today. (2) Diverticulosis Is this a current diagnosis for this admission?: Yes Plan: Please see #1 - Additional Information Resuscitation Status: Full Code Discharge Diet: As Tolerated Home Medications: Ascorbic Acid [Vitamin C 500 mg Tablet] 500 mg PO QPM 11/15/19 Aspirin [Ecotrin 81 mg EC Tablet] 81 mg PO DAILY 11/15/19 Fluocinolone Acetonide Oil [Dermotic] 1 drop AU BIDP PRN 11/15/19 Levothyroxine Sodium 50 mcg PO Q6AM 11/15/19 Meloxicam [Mobic 15 mg Tablet] 15 mg PO DAILYP PRN 11/15/19 Metformin HCl [Glucophage 500 mg Tablet] 500 mg PO BIDACBS 11/15/19 Simvastatin 40 mg PO QHS 11/15/19 Vit C/E/Zn/Coppr/Lutein/Zeaxan [Preservision Areds 2 Softgel] 1 each PO BID 11/15/19 Vitamin A [Vitamin A 10,000 Unit Capsule] 10,000 unit PO QPM 11/15/19 Vitamin B Complex [Vitamin B Complex Tablet] 1 tab PO QPM 11/15/19 History of Present Illiness History of Present Illness: SUJIT LERNER is a 79 year old male with a past medical history of dyslipidemia, diabetes, diverticulitis, prostate and colon cancer status post partial bowel resection. He presents with 4 hours of bright red blood per rectum x8 with subsequent diarrhea without pain. He admits preceding constipation but denies history of bleeding. In the emergency department he is found to have an unremarkable work-up without coagulopathy or anemia. He is referred to the hospitalist for admission. He denies recent change in medications. Hospital Course Hospital Course: Interval history: 11/15/2019: Patient seen and examined. Patient tells me he is feeling better. Had a small bowel movement last night and there was no blood in it. He is currently n.p.o. and waiting to see his surgeon. 11/16/2019: Patient seen and examined. He had his bowel prep last night and scheduled for EGD and colonoscopy later today. No bleeding whatsoever so far. Summary: (1) Lower GI bleed Patient underwent colonoscopy and EGD today. Was positive for diverticulosis and hemorrhoids. No active bleeding. Hemoglobin dropped slightly but continued to be stable throughout hospitalization. Patient was cleared by surgery for d ischarge. He was already diet by surgery. (2) Diverticulosis Please see #1 Physical Exam Vital Signs: Temp Pulse Resp BP Pulse Ox 97.4 F 67 17 128/58 H 94 11/16/19 15:45 11/16/19 15:45 11/16/19 15:45 11/16/19 15:45 11/16/19 15:45 Intake & Output 11/15/19 11/16/19 11/17/19 06:59 06:59 06:59 Intake Total 1000 710 Balance 1000 710 Weight 216 lb 0.848 oz 221 lb 12.56 oz Exam: Physical Exam General appearance: no acute distress, well-developed, well-nourished Head exam: atraumatic, normocephalic Eye exam: conjunctiva pink, EOMI, PERRLA. No scleral icterus Ear exam: normal external ear exam Mouth exam: moist, tongue midline Neck exam: No carotid bruit, JVD, lymphadenopathy, thyromegaly Respiratory exam: clear to auscultation eulogio. No rales, rhonchi, wheezes Cardiovascular exam: RRR. No diastolic murmur, rubs, systolic murmur Pulses: normal dorsalis pedis pul Vascular exam: normal capillary refill GI/Abdominal exam: normal bowel sounds, soft. No distended, guarding, mass, organolmegaly, rebound, tenderness Rectal exam: deferred Extremities exam: full ROM. No calf tenderness, clubbing, pedal edema Neurological exam: alert, awake, oriented to person, oriented to place, oriented to time, oriented to situation, CN II-XII grossly intact. No motor sensory deficit Psychiatric exam: appropriate affect, normal mood. No homicidal ideation, suicidal ideation Skin exam: dry, intact, warm. No cyanosis, rash Results Laboratory Results: WBC 3.8 10^3/uL (4.0-10.5) L 11/16/19 10:21 RBC 2.99 10^6/uL (4.35-5.55) L 11/16/19 10:21 Hgb 9.6 g/dL (13.5-17.0) L 11/16/19 10:21 Hct 27.2 % (37.9-51.0) L 11/16/19 10:21 MCV 91 fl (80-97) 11/16/19 10:21 MCH 32.2 pg (27.0-33.4) 11/16/19 10:21 MCHC 35.3 g/dL (32.0-36.0) 11/16/19 10: RDW 13.2 % (11.5-14.0) 11/16/19 10:21 Plt Count 165 10^3/uL (150-450) 11/16/19 10:21 Lymph % (Auto) 24.1 % (13-45) 11/16/19 10:21 [place] % (Auto) 10.3 % (3-13) 11/16/19 10:21 Eos % (Auto) 4.6 % (0-6) 11/16/19 10:21 Baso % (Auto) 0.6 % (0-2) 11/16/19 10:21 Absolute Neuts (auto) 2.3 10^3/uL (1.7-8.2) 11/16/19 10:21 Absolute Lymphs (auto) 0.9 10^3/uL (0.5-4.7) 11/16/19 10:21 Absolute Monos (auto) 0.4 10^3/uL (0.1-1.4) 11/16/19 10:21 Absolute Eos (auto) 0.2 10^3/uL (0.0-0.6) 11/16/19 10:21 Absolute Basos (auto) 0.0 10^3/uL (0.0-0.2) 11/16/19 10:21 Seg Neutrophils % 60.4 % (42-78) 11/16/19 10:21 PT 14.4 SEC (11.4-15.4) 11/14/19 19:40 INR 1.12 11/14/19 19:40 APTT 31.9 SEC (23.5-35.8) 11/14/19 19:40 Sodium 140.7 mmol/L (137-145) 11/16/19 11:32 Potassium 4.4 mmol/L (3.6-5.0) 11/16/19 11:32 Chloride 106 mmol/L (98-107) 11/16/19 11:32 Carbon Dioxide 29 mmol/L (22-30) 11/16/19 11:32 Anion Gap 6 (5-19) 11/16/19 11:32 BUN 15 mg/dL (7-20) 11/16/19 11:32 Creatinine 0.81 mg/dL (0.52-1.25) 11/16/19 11:32 Est GFR ( Amer) > 60 (>60) 11/16/19 11:32 Est GFR (Non-Af Amer) Cancelled 11/16/19 10:21 Est GFR (MDRD) Non-Af > 60 (>60) 11/16/19 11:32 Glucose 111 mg/dL (75-110) H 11/16/19 11:32 Calcium 8.5 mg/dL (8.4-10.2) 11/16/19 11:32 Total Bilirubin 0.3 mg/dL (0.2-1.3) 11/14/19 19:40 Direct Bilirubin 0.0 mg/dL (0.0-0.4) 11/14/19 19:40 Neonat Total Bilirubin Not Reportable 11/14/19 19:40 Neonat Direct Bilirubin Not Reportable 11/14/19 19:40 Neonat Indirect Bili Not Reportable 11/14/19 19:40 AST 27 U/L (17-59) 11/14/19 19:40 ALT 27 U/L (<50) 11/14/19 19:40 Alkaline Phosphatase 46 U/L (38-126) 11/14/19 19:40 Total Protein 6.5 g/dL (6.3-8.2) 11/14/19 19:40 Albumin 4.0 g/dL (3.5-5.0) 11/14/19 19:40 Lipase 148.7 U/L (23-300) 11/14/19 19:40 EGFR Cancelled 11/16/19 10:21 Blood Type A NEGATIVE 11/14/19 20:20 Antibody Screen NEGATIVE 11/14/19 20:20 Impressions: Abdomen/Pelvis CT 11/14/19 20:36 IMPRESSION: Diverticulosis of the colon. Remote postsurgical change. Diverticular disease of unknown chronicity is seen of the sigmoid colon. Both mild acute uncomplicated diverticulitis and chronic diverticular changes can have a similar appearance. Importantly, there is no evidence of the complications of acute diverticulitis. No evidence of extravasation of contrast is identified to suggest significant active gastrointestinal hemorrhage at this time.. Plan Time Spent: Less than 30 Minutes Stroke Is this a Stroke Patient?: No Acute Heart Failure - Is this a Heart Failure Patient?: No
== END 2019-11-16 18:33 | disposition home or self-care (01) | DRG 378 ==
LOC: ER 19:14 → EH 23:37 → 4N 11-15 00:40 → UNDODISIN 11-16 09:33
PROVIDERS: ADMIT Internal Medicine; ATTEND Internal Medicine
PROC: 0DJ08ZZ Inspection of Upper Intestinal Tract, Via Natural or Artificial Opening Endoscopic (ICD-10-PCS; principal; 2019-11-16 13:00)
PROC: 0DBM8ZX Excision of Descending Colon, Via Natural or Artificial Opening Endoscopic, Diagnostic (ICD-10-PCS; 2019-11-16 13:00)
DX: K57.31 Diverticulosis of large intestine without perforation or abscess with bleeding (principal); I85.00 Esophageal varices without bleeding; K64.4 Residual hemorrhoidal skin tags; K64.8 Other hemorrhoids; K63.5 Polyp of colon; E11.9 Type 2 diabetes mellitus without complications; E78.5 Hyperlipidemia, unspecified; Z90.49 Acquired absence of other specified parts of digestive tract; Z85.46 Personal history of malignant neoplasm of prostate; Z85.038 Personal history of other malignant neoplasm of large intestine
CPT/HCPCS: 36415; 43235; 45380; 74177; 80048; 80053; 813; 83690; 85025; 85610; 85730; 86850; 86900; 86901; 88305; 93005; 93010; 96360; 99285; J2250; J2704; J3490; J7030